=== PATIENT | female | born 2000 | race Caucasian/White ===

== ENCOUNTER 2024-08-11 07:18 | Outpatient (CLI) | payer OTHER, SELFPAY ==
--- OUTSIDE RECORDS SUMMARY | 2024-08-11 07:22 | XMS_ITS | Clinical Summary ---
Author Organization [facility] Address [address] [place] [address] Care Team Providers Care Dragline Oiler Name Role Phone Janet Perdomo NP Primary Care Provider +1- [phone] Allergies No known active allergies Medications No known medications Active Problems Problem Noted Date Diagnosed Date Chronic pain of right knee 06/28/2024 Injury of right knee 06/28/2024 Encounters Date Type Department Care Team Description 07/05/2024 7:44 AM INSTRUMENT FITTER - 07/05/2024 11:59 PM INSTRUMENT FITTER Hospital Encounter [facility] [address] [place] [phone] Perry Cassidy IV, MD Injury of right knee, initial encounter; Chronic pain of right knee Discharge Disposition: Discharge to home or self care 06/28/2024 4:05 PM INSTRUMENT FITTER - 06/28/2024 11:59 PM INSTRUMENT FITTER Hospital Encounter [facility] [address] [place] [phone] Right knee pain, unspecified chronicity Discharge Disposition: Discharge to home or self care 06/28/2024 4:00 PM INSTRUMENT FITTER Office Visit [facility] Orthopaedic Surgery [address] [place] [address] 2nd [address] [place] [phone] Perry Cassidy IV, MD Chronic pain of right knee (Primary Dx); Injury of right knee, initial encounter from Last 3 Months Medical History Medical History Date Comments PCOS (polycystic ovarian syndrome) Family History Medical History Relation Name Comments No Known Problems Father Cancer Maternal Grandmother sarai Hypertension Mother johnny Relation Name Status Comments Father Maternal Grandmother sarai Mother johnny Social History Tobacco Use Types Packs/Day Years Used Date Smoking Tobacco: Some Days Vaping Smokeless Tobacco: Never Tobacco Cessation:Ready to Q uit: Yes; Counseling Given: Not Answered Comments Unknown Sex and Gender Information Value Date Recorded Sex Assigned at Not on file Legal Sex Female 1:17 AM INSTRUMENT FITTER Gender Identity Female 06/07/2024 3:37 PM INSTRUMENT FITTER Sexual Orientation Straight 06/07/2024 3: 37 PM INSTRUMENT FITTER Obstetrics History Last Filed Vital Signs Vital Sign Reading Time Taken Comments Blood Pressure - - Pulse - - Temperature - - Respiratory Rate - - Oxygen Saturation - - Inhaled Oxygen Concentration - - Weight 93 kg (205 lb) 06/28/2024 4:33 PM INSTRUMENT FITTER Height 177.8 cm (5' 10 ) 06/28/2024 4:33 PM INSTRUMENT FITTER Body Mass Index 29.41 06/28/2024 4:33 PM INSTRUMENT FITTER Plan of Treatment Health Maintenance Due Date Last Done Comments Cervical Cancer Screening 1999 Chlamydia and Gonorrhea (GC/ CT) Screening 1999 Depression Screening 1999 Hepatitis C Screening 1999 Pneumococcal vaccine <65 (1 of 1 - PPSV23) 09/26/2005 06/15/2000 Regular Well Visit/Exam 18-64 09/26/2017 DTaP/Tdap/Td Vaccine (7 - Td or Tdap) 12/28/2022 12/28/2012, 12/23/2004, 06/07/2001, Additional history exists Covid-19 Vaccine (4 - 2023-2 5 season) 2024 06/06/2021, 11/28/2020, 10/29/2020 Hepatitis B Screening Completed 10/29/2000 , 01/07/2000, 1999 HPV Vaccines Completed 12/09/2016, 12/28/2012 Varicella Vaccines Completed 01/04/2018, 12/09/2016 Influenza Vaccine Completed 04/07/2024, 03/01/2009 Procedures Procedure Name Priority Date/Time Associated Diagnosis Comments MRI KNEE RIGHT WO CONTRAST Schedule Routine, Read Routine (OP Routine) 07/05/2024 8:19 AM INSTRUMENT FITTER Injury of right knee, initial encounter Chronic pain of right knee XR KNEE RIGHT 3 VIEWS Schedule Routine, Read Routine (OP Routine) 06/28/2024 4:11 PM INSTRUMENT FITTER Right knee pain, unspecified chronicity from Last 3 Months Results * MRI Knee Right WO Contrast (07/05/2024 8:19 AM INSTRUMENT FITTER) Anatomical Region Laterality Modality Lower Extremities Right Magnetic Reson ance 07/05/2024 9:13 AM INSTRUMENT FITTER Impressions 07/05/2024 12:16 PM INSTRUMENT FITTER 1. Small focus of edema in the superolateral aspect of Hoffa's fat pad. 2. No internal derangement in the right knee. Dictated by: Royer Espinoza D.O. The radiology attending physician has personally reviewed this study, and had reviewed and/or edited this written report and agrees with it. Electronically signed by: Gagan Wilcox M.D. Narrative 07/05/2024 12:16 PM INSTRUMENT FITTER EXAMINATION: MRI KNEE RIGHT WO CONTRAST HISTORY: Chronic right knee pain TECHNIQUE: Multiplanar multisequence MR imaging of the right knee was performed without intravenous contrast. COMPARISON: Radiographs dated 06/28/2024. FINDINGS: In the medial compartment, the meniscus is intact. There is no focal chondrosis or subchondral edema. In the lateral compartment, the meniscus is intact. There is no focal chondrosis or subchondral edema. In the patellofemoral compartment, there is no focal chondrosis or subchondral edema. The cruciate and collateral ligaments are intact. The extensor mechanism is normal. The popliteus tendon is normal. There is a physiologic amount of fluid within the knee joint. No loose bodies are identified. The bone marrow signal is normal. There is a small focus of edema in the superolateral aspect of Hoffa's fat pad. Procedure Note Gagan Wilcox MD PhD - 07/05/2024 EXAMINATION: MRI KNEE RIGHT WO CONTRAST HISTORY: Chronic right knee pain TECHNIQUE: Multiplanar multisequence MR imaging of the right knee was performed without intravenous contrast. COMPARISON: Radiographs dated 06/28/2024. FINDINGS: In the medial compartment, the meniscus is intact. There is no focal chondrosis or subchondral edema. In the lateral compartment, the meniscus is intact. There is no focal chondrosis or subchondral edema. In the patellofemoral compartment, there is no focal chondrosis or subchondral edema. The cruciate and collateral ligaments are intact. The extensor mechanism is normal. The popliteus tendon is normal. There is a physiologic amount of fluid within the knee joint. No loose bodies are identified. The bone marrow signal is normal. There is a small focus of edema in the superolateral aspect of Hoffa's fat pad. IMPRESSION: 1. Small focus of edema in the superolateral aspect of Hoffa's fat pad. 2. No internal derangement in the right knee. Dictated by: Royer Espinoza D.O. The radiology attending physician has personally reviewed this study, and had reviewed and/or edited this written report and agrees with it. Electronically signed by: Gagan Wilcox M.D. Perry Cassidy IV, MD [facility] MRI PROCEDURES Fi nal Result * XR Knee Right 3 Views (06/28/2024 4:11 PM INSTRUMENT FITTER) Anatomical Region Laterality Modality Lower Extremities, Knee Right Computed Radiography 06/28/2024 4:26 PM INSTRUMENT FITTER Impressions 06/28/2024 4:26 PM INSTRUMENT FITTER 1. Possible small right knee joint effusion without acute osseous abnormality. Electronically signed by: Yohannes Chau M.D. Narrative 06/28/2024 4:26 PM INSTRUMENT FITTER EXAMINATION: XR KNEE RIGHT 3 VIEWS HISTORY: right knee pain FINDINGS: 3 view examination of the right knee is read without comparison. Joint spaces are normal. Possible small joint effusion. No fracture or dislocation. Procedure Note Yohannes Barnes MD - 06/28/2024 EXAMINATION: XR KNEE RIGHT 3 VIEWS HISTORY: right knee pain FINDINGS: 3 view examination of the right knee is read without comparison. Joint spaces are normal. Possible small joint effusion. No fracture or dislocation. IMPRESSION: 1. Possible small right knee joint effusion without acute osseous abnormality. Electronically signed by: Yohannes Chau M.D. Perry Cassidy IV, MD IMG XR PROCEDURES Fin al Result from Last [address] [facility] [place] [address] [facility] [place] [address] Care Teams Dragline Oiler Relationship Specialty Start Date End Date Janet Perdomo NP [address] [place] [phone] PCP - General Obstetrics and Gynecology 03/12/18
--- OUTSIDE RECORDS SUMMARY | 2024-08-11 07:22 | XMS_ITS | Referral Summary ---
Author Organization [facility] Address [address] [place] [address] Care Team Providers Care Bander Operator Name Role Phone Janet Perdomo NP Primary Care Provider +1- [phone] Encounters Date Type Department Care Team Description 07/05/2024 7:44 AM SQL ARCHITECT - 07/05/2024 11:59 PM SQL ARCHITECT Hospital Encounter [facility] [address] [place] [phone] Perry Cassidy IV, MD Injury of right knee, initial encounter; Chronic pain of right knee Discharge Disposition: Discharge to home or self care 06/28/2024 4:05 PM SQL ARCHITECT - 06/28/2024 11:59 PM SQL ARCHITECT Hospital Encounter [facility] [address] [place] [phone] Right knee pain, unspecified chronicity Discharge Disposition: Discharge to home or self care 06/28/2024 4:00 PM SQL ARCHITECT Office Visit [facility] Orthopaedic Surgery [address] [place] [address] [address] [place] [phone] Perry Cassidy IV, MD Chronic pain of right knee (Primary Dx); Injury of right knee, initial encounter from Last 3 Months Allergies No known active allergies Medications No known medications Active Problems Problem Noted Date Diagnosed Date Chronic pain of right knee 06/28/2024 Injury of right knee 06/28/2024 Social History Tobacco Use Types Packs/Day Years Used Date Smoking Tobacco: Some Days Vaping Smokeless Tobacco: Never Tobacco Cessation:Ready to Q uit: Yes; Counseling Given: Not Answered Comments Unknown Sex and Gender Information Value Date Recorded Sex Assigned at Not on file Legal Sex Female 1:17 AM SQL ARCHITECT Gender Identity Female 06/07/2024 3:37 PM SQL ARCHITECT Sexual Orientation Straight 06/07/2024 3: 37 PM SQL ARCHITECT Last Filed Vital Signs Vital Sign Reading Time Taken Comments Blood Pressure - - Pulse - - Temperature - - Respiratory Rate - - Oxygen Saturation - - Inhaled Oxygen Concentration - - Weight 93 kg (205 lb) 06/28/2024 4:33 PM SQL ARCHITECT Height 177.8 cm (5' 10 ) 06/28/2024 4:33 PM SQL ARCHITECT Body Mass Index 29.41 06/28/2024 4:33 PM SQL ARCHITECT Plan of Treatment Not on file Procedures Procedure Name Priority Date/Time Associated Diagnosis Comments MRI KNEE RIGHT WO CONTRAST Schedule Routine, Read Routine (OP Routine) 07/05/2024 8:19 AM SQL ARCHITECT Injury of right knee, initial encounter Chronic pain of right knee XR KNEE RIGHT 3 VIEWS Schedule Routine, Read Routine (OP Routine) 06/28/2024 4:11 PM SQL ARCHITECT Right knee pain, unspecified chronicity from Last 3 Months Results * MRI Knee Right WO Contrast (07/05/2024 8:19 AM SQL ARCHITECT) Anatomical Region Laterality Modality Lower Extremities Right Magnetic Reson ance 07/05/2024 9:13 AM SQL ARCHITECT Impressions 07/05/2024 12:16 PM SQL ARCHITECT 1. Small focus of edema in the superolateral aspect of Hoffa's fat pad. 2. No internal derangement in the right knee. Dictated by: Royer Espinoza D.O. The radiology attending physician has personally reviewed this study, and had reviewed and/or edited this written report and agrees with it. Electronically signed by: Gagan Wilcox M.D. Narrative 07/05/2024 12:16 PM SQL ARCHITECT EXAMINATION: MRI KNEE RIGHT WO CONTRAST HISTORY: [...] Knee Right 3 Views (06/28/2024 4:11 PM SQL ARCHITECT) Anatomical Region Laterality Modality Lower Extremities, Knee Right Computed Radiography 06/28/2024 4:26 PM SQL ARCHITECT Impressions 06/28/2024 4:26 PM SQL ARCHITECT 1. Possible small right knee joint effusion without acute osseous abnormality. Electronically signed by: Yohannes Chau M.D. Narrative 06/28/2024 4:26 PM SQL ARCHITECT EXAMINATION: XR KNEE RIGHT 3 VIEWS HISTORY: [...] al Result from Last 3 Months Insurance [facility] [employer] [facility] [employer]/PPO Address: [facility] [address] [place] [address] [employer] CHOICE [employer]US [facility] HMO/PPO Address: [address] [address] [place] [address] [facility] [employer] [facility] [employer] Address: [facility] [address] [place] [address] Care Teams Bander Operator Relationship Specialty Start Date End Date Janet Perdomo NP [address] [place] [id number] PCP - General Obstetrics and Gynecology 03/12/18
[2024-08-11 20:07] LABS: Hematocrit 41.7 % (37.0-47.0); Hemoglobin 12.9 g/dL (12.0-15.0); Mean Corpuscular HGB Conc 30.9 g/dl (32-36); Mean Corpuscular Hemoglobin 30.8 pg (26-34); Mean Corpuscular Volume 99.5 fl (80-100); Mean Platelet Volume 10.8 fl (7.4-10.4); Platelet Count Result 387 k/mm3 (150-375); Red Blood Count 4.19 M/mm3 (4.2-5.4); White Blood Count 5.3 K/mm3 (4.5-10.0)
[2024-08-11 20:15] LABS: Alanine Aminotransferase 25 U/L (6-35); Albumin Level 4.6 g/dL (3.5-5.1); Alkaline Phosphatase 65 U/L (38-126); Anion Gap 9 mmol/L (4-12); Aspartate Amino Transferase 51 U/L (14-36); Bilirubin,Total 0.5 mg/dL (0.2-1.3); Blood Urea Nitrogen 14 mg/dL (7-17); Calcium 9.1 mg/dL (8.4-10.2); Carbon Dioxide 26 mmol/L (22-30); Chloride 105 mmol/L (98-107); Cholesterol 147 mg/dL (0-200); Estimated Glomerular Filt Rate > 60; Glucose 85 mg/dL (65-110); HDL Direct 41 mg/dL; Potassium 4.3 mmol/L (3.4-5.0); Sodium 140 mmol/L (137-145); Triglycerides 79 mg/dL (<150)
[2024-08-11 20:26] LABS: LDL Cholesterol Direct 79 mg/dL
[2024-08-11 20:49] LABS: Free T4 Free Thyroxine 0.97 ng/dL (0.78-2.19)
[2024-08-15 16:32] LABS: Thyroid Peroxidase Antibodies <1 IU/mL (<9)
[2024-08-16 16:14] LABS: Testosterone Free 5.4 pg/mL (0.1-6.4); Testosterone Total 31 ng/dL (2-45)
== END 2024-08-11 07:19 | disposition home or self-care (01) ==
LOC: ANHBWCLAB 07:20
PROVIDERS: PCP Nurse Practitioner Adult Health; Visit Provider Nurse Practitioner Adult Health
DX: E28.2 Polycystic ovarian syndrome (principal); Z13.9 Encounter for screening, unspecified
CPT/HCPCS: 36415; 80053; 80061; 84402; 84403; 84439; 84443; 85027; 86376

== ENCOUNTER 2024-08-16 08:08 | Outpatient (CLI) | payer OTHER, SELFPAY ==
--- NOTE | ~2024-08-16 | US_ITS ---
EXAMINATION: US thyroid DATE: 08/16/2024 08:19 INDICATION: Nontoxic goiter TECHNIQUE: Multiple ultrasound images of the thyroid were obtained. COMPARISON: None. FINDINGS: The right thyroid lobe measures 5.4 x 1.7 x 1.9 cm. The left thyroid lobe measures 2.4 x 1.5 x 1.8 c m. There are 2 isthmus measures 4 mm in thickness. No discrete nodules identified. There is normal ec hotexture, echogenicity and vascular flow throughout the thyroid gland. IMPRESSION: 1. Normal thyroid ultrasound. Reviewed, dictated and finalized at location B.
== END 2024-08-16 08:09 | disposition home or self-care (01) ==
LOC: GOSHIMG 08:08
PROVIDERS: PCP Nurse Practitioner Adult Health; Visit Provider Nurse Practitioner Adult Health
DX: E04.9 Nontoxic goiter, unspecified (principal)
CPT/HCPCS: 76536